=== PATIENT | female | born 1980 | race Caucasian/White ===

== ENCOUNTER 2018-08-30 08:46 | Inpatient (IN) | payer OTHER ==
[2018-08-30 08:52] VITALS: BMI 32.9
--- NOTE | 2018-08-30 09:23 | PDOC ---
History of Present Illness - General Chief Complaint: Revisit, Lab Variance Stated Complaint: SENT BY PCP Time Seen by Provider: 08/30/18 09:08 History Source: Patient Past History - Travel Traveled outside of the country in the last 30 days: No Close contact w/someone who was outside of country & ill: No - Past Medical History Allergies/Adverse Reactions: Allergies Allergy/AdvReac Type Severity Reaction Status Date / Time No Known Allergies Allergy Verified 08/30/18 08:48 COPD: No GI Disorders: Yes (ESRD) HTN: Yes - Immunization History Immunization Up to Date: Yes - Suicide/Smoking/Psychosocial Hx Smoking History: Never smoked Hx Alcohol Use: No Drug/Substance Use Hx: No Review of Systems - Review of Systems Able to Perform ROS?: Yes Comments:: 08/30/18 09:18 CONSTITUTIONAL: Absent: fever, chills, diaphoresis, generalized weakness, malaise, loss of appetite HEENT: Absent: rhinorrhea, nasal congestion, throat pain, throat swelling, difficulty swallowing, mouth swelling, ear pain, eye pain, visual Changes CARDIOVASCULAR: Absent: chest pain, loss of consciousness, palpitations, irregular heart rate, peripheral edema RESPIRATORY: Absent: cough, shortness of breath, dyspnea with exertion, orthopnea, wheezing, stridor, hemoptysis GASTROINTESTINAL: Absent: abdominal pain, abdominal distension, nausea, vomiting, diarrhea, constipation, melena, hematochezia GENITOURINARY: Absent: dysuria, frequency, urgency, hesitancy, hematuria, flank pain, genital pain MUSCULOSKELETAL: Absent: myalgia, arthralgia, joint swelling SKIN: Absent: rash, itching, pallor HEMATOLOGIC/IMMUNOLOGIC: Absent: easy bleeding, easy bruising, lymphadenopathy, frequent infections ENDOCRINE: Absent: unexplained weight gain, unexplained weight loss, heat intolerance, cold intolerance NEUROLOGIC: Absent: headache, focal weakness or paresthesias, dizziness, unsteady gait, seizure, mental status changes, bladder or bowel incontinence PSYCHIATRIC: Absent: anxiety, depression, suicidal or homicidal ideation, hallucinations. Is the patient limited Haitian proficient: No *Physical Exam - Vital Signs Last Vital Signs Temp Pulse Resp BP Pulse Ox 97.8 F 64 16 153/60 100 08/30/18 08:49 08/30/18 08:49 08/30/18 08:49 08/30/18 08:49 08/30/18 08:49 - Physical Exam Comments: 08/30/18 09:18 GENERAL: Well developed, well nourished. Awake and alert. No acute distress. HEENT: Normocephalic, atraumatic. PERRLA, EOMI. No conjunctival pallor. Sclera are non- icteric. Moist mucous membranes. Oropharynx is clear. NECK: Supple. Full ROM. No JVD. Carotid pulses 2+ and symmetric, without bruits. No thyromegaly. No lymphadenopathy. CARDIOVASCULAR: Regular rate and rhythm. No murmurs, rubs, or gallops. Distal pulses are 2+ and symmetric. PULMONARY: No evidence of respiratory distress. Lungs clear to auscultation bilaterally. No wheezing, rales or rhonchi. ABDOMINAL: Soft. Non-tender. Non-distended. No rebound or guarding. No organomegaly. Normoactive bowel sounds. MUSCULOSKELETAL Normal range of motion at all joints. No bony deformities or tenderness. No CVA tenderness. EXTREMITIES: No cyanosis. No clubbing. No edema. No calf tenderness. SKIN: Warm and dry. Normal capillary refill. No rashes. No jaundice. NEUROLOGICAL: Alert, awake, appropriate. Cranial nerves 2-12 intact. No deficits to light touch and temperature in face, upper extremities and lower extremities. No motor deficits in the in face, upper extremities and lower extremities. Normoreflexic in the upper and lower extremities. Normal speech. Toes are down- going bilaterally. Gait is normal without ataxia. PSYCHIATRIC: Cooperative. Good eye contact. Appropriate mood and affect. ED Treatment Course - LABORATORY CBC & Chemistry Diagram: 08/30/18 10:35 08/30/18 10:35 Medical Decision Making - Medical Decision Making 08/30/18 09:19 The patient is a 38-year-old female past medical history of hypertension, uremia /severe anemia, ESRD who presents to the emergency department today for permacath placement and possible AV fistula. She was sent over by Dr. Samantha Hart. He states that she is also to start dialysis [facility]. She states that she saw Dr. Samantha Hart on 08/25/18. Patient states that she currently has no symptoms and that she feels fine. Denies fevers, chills, difficulty breathing, shortness of breath, chest pain, palpitations, nausea, vomiting, diarrhea comfortably, urgency and hematuria. Patient does make urine. Last oral intake 5am, water. NPO since then. A/P: ESRD Lungs are clear bilaterally, cardiac exam S1-S2 present with no murmurs rubs or gallops. No CVA tenderness Patient has a prescription from Dr. Samantha Hart requesting a consult for Dr. Soni for permacath placement as well as AV fistula consults. Also states that she will need start dialysis [facility]. We'll order basic labs and EKG, urine and consult Dr. Soni Reevaluate 08/30/18 10:36 Dr. Soni paged Labs drawn, 20g IV placed in the R AC 08/30/18 11:[address] Soni, will see patient today. CR is 7.2 BUN 66. K 5.0 Will admit patient for permacath placement and dialysis. Dr. Bermudez consulted. Microblog sent to [facility] 08/30/18 12:[address] Leung. Accepted to Med/surg dialysis bed 08/30/18 12:[address] Soni, IV now in the L forearm as pt is L hand dominant. Will want to obtain access on the R arm instead. *DC/Admit/Observation/Transfer Diagnosis at time of Disposition: Uremia, ESRD (end stage renal disease) - Discharge Dispostion Disposition: HOME Condition at time of disposition: Stable Decision to Admit order: Yes - Referrals - Patient Instructions - Post Discharge Activity
--- NOTE | 2018-08-30 10:24 | PDOC ---
*Physical Exam - Vital Signs Last Vital Signs Temp Pulse Resp BP Pulse Ox 97.8 F 64 16 153/60 100 08/30/18 08:49 08/30/18 08:49 08/30/18 08:49 08/30/18 08:49 08/30/18 08:49 Heart Score/ECG Review #1 ECG reviewed & interpreted by me at: 10:00 General ECG Interpretation: Sinus Rhythm, Normal Rate (62), Normal Intervals ( qtc 440), No acute ischemic changes (TWI AVL) Compared to previous ECG there are: Previous ECG unavail Medical Decision Making - Medical Decision Making 08/30/18 10:22 Patient seen and evaluated with the nurse practitioner. I agree with the overall evaluation, assessment, and management with the following summary of visit: 38-year-old female with history of uremia and anemia sent for initiation of dialysis, will need urgent nephrology and vascular consult. EKG is sinus at 62 without changes concerning for hyperkalemia or ischemia Labs, chest x-ray Admission, consult for Dr. Soni per PCP *DC/Admit/Observation/Transfer Diagnosis at time of Disposition: Uremia - Referrals Referrals: Samantha Bermudez MD [Primary Care Provider] - - Patient Instructions - Post Discharge Activity
[2018-08-30 10:43] LABS: BASO % 1.2 % (0-2.0); EOS % 4.5 % (0-4.5); HEMATOCRIT 26.9 % (32.4-45.2); HEMOGLOBIN 9.4 GM/dL (10.7-15.3); LYMPH % 12.4 % (8-40); MCH 32.5 pg (25.7-33.7); MCHC 34.9 g/dl (32.0-36.0); MEAN CELL VOLUME 93.2 fl (80-96); MEAN PLT VOLUME 7.8 fl (7.5-11.1); MONO % 4.3 % (3.8-10.2); NEUT % 77.6 % (42.8-82.8); PLATELET COUNT 211 K/MM3 (134-434); RBC 2.89 M/mm3 (3.60-5.2); RDW 14.4 % (11.6-15.6); WHITE BLOOD COUNT 6.8 K/mm3 (4.0-10.0)
[2018-08-30 11:02] LABS: INR 0.94 (0.83-1.09); PROTHROMBIN TIME (PATIENT) 11.1 SEC (9.7-13.0)
[2018-08-30 11:05] LABS: MAGNESIUM 2.5 mg/dL (1.8-2.4); PHOSPHOROUS 4.2 mg/dL (2.5-4.9)
[2018-08-30 11:19] LABS: ALK PHOS 128 U/L (45-117); ANION GAP 7 MMOL/L (8-16); BILIRUBIN,TOTAL 0.4 mg/dL (0.2-1); BLOOD UREA NITROGEN 64 mg/dL (7-18); CALCIUM 8.7 mg/dL (8.5-10.1); CHLORIDE 111 mmol/L (98-107); CO2 22 mmol/L (21-32); CREATININE 7.2 mg/dL (0.55-1.3); GLUCOSE,RANDOM 91 mg/dL (74-106); SGOT/AST 14 U/L (15-37); SGPT/ALT 17 U/L (13-61); SODIUM 140 mmol/L (136-145); TOT PROT 7.6 g/dl (6.4-8.2)
--- NOTE | 2018-08-30 12:27 | HP ---
PCP: Jennifer Chow CHIEF COMPLAINT: Sent in for HD HISTORY OF PRESENT ILLNESS: This is a 38 year old woman who presents to the ED at the advice of her auger machine offbearer, Dr. Bermudez, for initiation of HD because of worsening CKD. She has no specific complaints. She has been urinating normally. She does experience fatigue and feels generally weak. PAST MEDICAL HISTORY Stage 5 CKD IgA nephropathy HTN PAST SURGICAL HISTORY Denies ALLERGIES No Known Allergies Allergy (Verified 08/30/18 08:48) MEDICATIONS BP med - unsure which Social History: Smoking: Denies Alcohol: Denies Drugs: Denies Recent Travel: Denies Family History Unremarkable REVIEW OF SYSTEMS CONSTITUTIONAL: Present: fatigue, generalized weakness. Absent: fever, chills , diaphoresis, loss of appetite, weight change HEENT: Absent: rhinorrhea, nasal congestion, throat pain, throat swelling, difficulty swallowing, mouth swelling, ear pain, eye pain, visual changes CARDIOVASCULAR: Absent: chest pain, syncope, palpitations, lightheadedness, peripheral edema RESPIRATORY: Absent: cough, shortness of breath, dyspnea with exertion, orthopnea, wheezing, stridor, hemoptysis GASTROINTESTINAL: Absent: abdominal pain, abdominal distension, nausea, vomiting , diarrhea, constipation, melena, hematochezia GENITOURINARY: Absent: dysuria, frequency, urgency, hesitancy, hematuria, flank pain, genital pain MUSCULOSKELETAL: Absent: myalgia, arthralgia, joint swelling, back pain, neck pain SKIN: Absent: rash, itching, pallor HEMATOLOGIC/IMMUNOLOGIC: Absent: easy bleeding, easy bruising, lymphadenopathy, frequent infections ENDOCRINE: Absent: unexplained weight gain, unexplained weight loss, heat intolerance, cold intolerance NEUROLOGIC: Absent: headache, focal weakness, paresthesias, dizziness, unsteady gait, seizure, mental status changes, bladder or bowel incontinence PSYCHIATRIC: Absent: anxiety, depression, suicidal or homicidal ideation, hallucinations. PHYSICAL EXAMINATION Vital Signs - 24 hr 08/30/18 08:49 Temperature 97.8 F Pulse Rate 64 Respiratory 16 Rate Blood Pressure 153/60 O2 Sat by Pulse 100 Oximetry (%) GENERAL: Awake, alert, and fully oriented, in no acute distress. HEAD: Normal with no signs of trauma. EYES: Pupils equal, round and reactive to light, extraocular movements intact, sclerae anicteric, conjunctivae clear. EARS, NOSE, THROAT: Ears normal, nares patent, oropharynx clear without exudates. Moist mucous membranes. NECK: Normal range of motion, supple without lymphadenopathy, JVD, or masses. LUNGS: Breath sounds equal, clear to auscultation bilaterally. No wheezes, and no crackles. No accessory muscle use. HEART: Regular rate and rhythm, normal S1 and S2 without murmur, rub or gallop. ABDOMEN: Obese, soft, nontender, not distended, normoactive bowel sounds, no guarding, no rebound, no masses. No hepatomegaly or splenomegaly. MUSCULOSKELETAL: Normal range of motion at all joints. No bony deformities or tenderness. No CVA tenderness. UPPER EXTREMITIES: 2+ pulses, warm, well-perfused. No cyanosis. No clubbing. No peripheral edema. LOWER EXTREMITIES: 2+ pulses, warm, well-perfused. No calf tenderness. No peripheral edema. NEUROLOGICAL: Cranial nerves II-XII intact. Normal speech. Gait not observed. PSYCHIATRIC: Cooperative. Good eye contact. Appropriate mood and affect. SKIN: Warm, dry, normal turgor, no rashes or lesions noted, normal capillary refill. Laboratory Results - last 24 hr 08/30/18 08/30/18 08/30/18 10:32 10:35 10:35 WBC 6.8 RBC 2.89 L Hgb 9.4 L Hct 26.9 L MCV 93.2 MCH 32.5 MCHC 34.9 RDW 14.4 Plt Count 211 MPV 7.8 Absolute Neuts (auto) 5.3 Neutrophils % 77.6 Lymphocytes % 12.4 Monocytes % 4.3 Eosinophils % 4.5 Basophils % 1.2 Nucleated RBC % 0 PT with INR INR Sodium 140 Potassium 5.0 Chloride 111 H Carbon Dioxide 22 Anion Gap 7 L BUN 64 H Creatinine 7.2 H Creat Clearance w eGFR 6.29 Random Glucose 91 Calcium 8.7 Phosphorus Magnesium Total Bilirubin 0.4 AST 14 L ALT 17 Alkaline Phosphatase 128 H Total Protein 7.6 Albumin 4.0 Blood Type O POSITIVE Antibody Screen Negative 08/30/18 08/30/18 08/30/18 10:35 10:35 10:35 WBC RBC Hgb Hct MCV MCH MCHC RDW Plt Count MPV Absolute Neuts (auto) Neutrophils % Lymphocytes % Monocytes % Eosinophils % Basophils % Nucleated RBC % PT with INR 11.10 INR 0.94 Sodium Potassium Chloride Carbon Dioxide Anion Gap BUN Creatinine Creat Clearance w eGFR Random Glucose Calcium Phosphorus 4.2 Magnesium 2.5 H Total Bilirubin AST ALT Alkaline Phosphatase Total Protein Albumin Blood Type O POSITIVE Antibody Screen Negative ASSESSMENT/PLAN: This is a 38 year old woman with a history of stage 5 CKD, IgA nephropathy, HTN who was sent to the ED by Dr. Bermudez because of worsening kidney function to start hemodialysis. 1. ESRD - Vascular surgery consulted for dialysis catheter insertion, AV fistula formation - Nephrology consulted for HD - Will need to arrange outpatient HD 2. IgA nephropathy 3. HTN - BP 153/60 - She is unsure which med she takes - Will reassess once HD started 4. Anemia secondary to CKD - No indication for transfusion at this time - Epogen with HD
[2018-08-30] MEDS ORDERED: ACETAMINOPHEN 325 MG TABLET (FP) PO PRN ×2 (12:28→16:25)
--- NOTE | 2018-08-30 13:45 | CONSULT ---
Addendum entered and electronically signed by Jon Dale PA 08/30/18 14:51: LUE Vein mapping Possible AVF creation 08/31/18 Original Note: <Jon Dale - Last Filed: 08/30/18 14:31> - Consultation REQUESTING PROVIDER: Arik Soni - Vascular Surgery CONSULT REQUEST: We have been asked to surgically evaluate this patient for ESRD , Uremic PCP: Anthony Leung MD HPI: Called to evaluate 38 yo female with PMHx as noted below. Patient is right hand dominant. She was last seen by Dr. Samantha Bermudez'han (Nephro) on 08/25/18 and deemed that she needs to begin HD [facility] secondary to her CKD which has progressed to ESRD. Patient currently is asymptomatic (no signs of fluid overload or SOB, making urine). Denies n/v/f/c, CP, palpitations, irregular rhythm, cough, SOB, PETIT or weight change PMHx: HTN, Uremia, Anemia, ESRD PSHx: Denies. Home Meds: Denies. Allergies: NKDA ROS: CONSTITUTIONAL: Absent: diaphoresis, generalized weakness, malaise, loss of appetite CARDIOVASCULAR: Absent: syncope,lightheadedness RESPIRATORY: Absent: wheezing, stridor, hemoptysis GASTROINTESTINAL:Absent: abdominal pain, abdominal distension, constipation, melena, hematochezia GENITOURINARY: Absent: requency, urgency, hesitancy MUSCULOSKELETAL: Absent: myalgia, arthralgia, joint swelling, back pain, neck pain SKIN: Absent: rash, itching, pallor HEMATOLOGIC/IMMUNOLOGIC: Absent: easy bleeding, easy bruising, lymphadenopathy NEUROLOGIC: Absent: headache, focal weakness, paresthesias, dizziness, unsteady gait, seizure, mental status changes PSYCHIATRIC: Absent: anxiety, depression, suicidal or homicidal ideation, hallucinations. PE: GENERAL: Awake, alert, and fully oriented, NAD HEAD: NC. AT. EYES: PERRL, sclera anicteric, conjunctiva clear. NECK: Normal ROM, supple without lymphadenopathy, JVD, or masses. LUNGS: CTA bilat HEART: RRR ABDOMEN: Soft, NT, ND MUSCULOSKELETAL: No CVAaT bilat UE: 2+ pulses, warm, well-perfused. No cyanosis. Cap refill <2 seconds. No peripheral edema. LE: 2+ pulses, warm, well-perfused. No calf tenderness. No peripheral edema. NEUROLOGICAL: Normal speech, gait not observed. PSYCH: Cooperative. Good eye contact. Appropriate mood and affect. SKIN: Warm, dry, normal turgor, no rashes or lesions noted Last Vital Signs Temp Pulse Resp BP Pulse Ox 97.8 F 64 16 153/60 100 08/30/18 08:49 08/30/18 08:49 08/30/18 08:49 08/30/18 08:49 08/30/18 08:49 CBC, BMP 08/30/18 10:35 08/30/18 10:35 INR, PTT INR 0.94 (0.83-1.09) 08/30/18 10:35 Blood Type Blood Type O POSITIVE 08/30/18 10:35 Problem List - Problems (1) ESRD (end stage renal disease) Assessment/Plan: 38 year old female with CKD which has progressed to ESRD now in need of HD as per Dr. Singh (Nephro). Make patient NPO IVF rate KVO Going to OR today for Permacath followed by HD tomorrow morning Save LUE - NO PHLEBOTOMY or IVs Above plan discussed with Dr. Soni and agrees. Code(s): N18.6 - END STAGE RENAL DISEASE Visit type - Case Type Case Type: ED Admission - Emergency Emergency Visit: Yes ED Registration Date: 08/30/18 Care time: The patient presented to the Emergency Department on the above date and was hospitalized for further evaluation of their emergent condition. - New patient This patient is new to me today: Yes Date on this admission: 08/30/18 <Arik Soni - Last Filed: 08/30/18 15:59> - Consultation REQUESTING PROVIDER: CONSULT REQUEST: We have been asked to surgically evaluate this patient for ( specify). PCP:Anthony Leung MD HISTORY OF PRESENT ILLNESS: PMHx: PSHx: Home Medications Medication Instructions Recorded Unobtainable 08/30/18 Allergies Allergy/AdvReac Type Severity Reaction Status Date / Time No Known Allergies Allergy Verified 08/30/18 08:48 REVIEW OF SYSTEMS: CONSTITUTIONAL: Absent: fever, chills, diaphoresis, generalized weakness, malaise, loss of appetite, weight change CARDIOVASCULAR: Absent: chest pain, syncope, palpitations, irregular heart rate, lightheadedness , peripheral edema RESPIRATORY: Absent: cough, shortness of breath, dyspnea with exertion, wheezing, stridor, hemoptysis GASTROINTESTINAL: Absent: abdominal pain, abdominal distension, nausea, vomiting, diarrhea, constipation, melena, hematochezia GENITOURINARY: Absent: dysuria, frequency, urgency, hesitancy, hematuria, flank pain, genital pain MUSCULOSKELETAL: Absent: myalgia, arthralgia, joint swelling, back pain, neck pain SKIN: Absent: rash, itching, pallor HEMATOLOGIC/IMMUNOLOGIC: Absent: easy bleeding, easy bruising, lymphadenopathy NEUROLOGIC: Absent: headache, focal weakness, paresthesias, dizziness, unsteady gait, seizure, mental status changes, bladder or bowel incontinence PSYCHIATRIC: Absent: anxiety, depression, suicidal or homicidal ideation, hallucinations. PHYSICAL EXAM: GENERAL: Awake, alert, and fully oriented, in no acute distress. HEAD: Normal with no signs of trauma. EYES: PERRL, sclera anicteric, conjunctiva clear. NECK: Normal ROM, supple without lymphadenopathy, JVD, or masses. LUNGS: Clear to auscultation bilat anteriorly. No wheezes, and no crackles. No accessory muscle use. HEART: Regular rate and rhythm. No murmurs ABDOMEN: Soft, nontender, not distended, normoactive bowel sounds, no guarding, no rebound, no masses. No organomegaly. MUSCULOSKELETAL: Normal ROM at all joints. No bony deformities or tenderness. No CVA tenderness. UPPER EXTREMITIES: 2+ pulses, warm, well-perfused. No cyanosis. Cap refill <2 seconds. No peripheral edema. LOWER EXTREMITIES: 2+ pulses, warm, well-perfused. No calf tenderness. No peripheral edema. NEUROLOGICAL: Normal speech, gait not observed. PSYCH: Cooperative. Good eye contact. Appropriate mood and affect. SKIN: Warm, dry, normal turgor, no rashes or lesions noted. Vital Signs Temperature 98.2 F 08/30/18 14:35 Pulse Rate 83 08/30/18 14:35 Respiratory Rate 18 08/30/18 14:35 Blood Pressure 140/69 08/30/18 14:35 O2 Sat by Pulse Oximetry (%) 100 08/30/18 14:35 Lab Results WBC 6.8 K/mm3 (4.0-10.0) 08/30/18 10:35 RBC 2.89 M/mm3 (3.60-5.2) L 08/30/18 10:35 Hgb 9.4 GM/dL (10.7-15.3) L 08/30/18 10:35 Hct 26.9 % (32.4-45.2) L 08/30/18 10:35 MCV 93.2 fl (80-96) 08/30/18 10:35 MCHC 34.9 g/dl (32.0-36.0) 08/30/18 10:35 RDW 14.4 % (11.6-15.6) 08/30/18 10:35 Plt Count 211 K/MM3 (134-434) 08/30/18 10:35 Sodium 140 mmol/L (136-145) 08/30/18 10:35 Potassium 5.0 mmol/L (3.5-5.1) 08/30/18 10:35 Chloride 111 mmol/L (98-107) H 08/30/18 10:35 Carbon Dioxide 22 mmol/L (21-32) 08/30/18 10:35 Anion Gap 7 MMOL/L (8-16) L 08/30/18 10:35 BUN 64 mg/dL (7-18) H 08/30/18 10:35 Creatinine 7.2 mg/dL (0.55-1.3) H 08/30/18 10:35 Random Glucose 91 mg/dL (74-106) 08/30/18 10:35 Calcium 8.7 mg/dL (8.5-10.1) 08/30/18 10:35 Blood Type O POSITIVE 08/30/18 10:35 Antibody Screen Negative 08/30/18 10:35 INR 0.94 (0.83-1.09) 08/30/18 10:35 History reviewed, patient examined. She states she is left handed. Right arm cephalic vein 3 mm above elbow, brachial pulse 2+. radial artery 1.5 mm at wrist. Permacath placement today to begin HD. AV fistula right arm tomorrow.
[2018-08-30 13:56] LABS: HCG,QUALITATIVE URINE Negative
[2018-08-30 13:57] LABS: EPI CELLS 6.2 /HPF (0-5/HPF); URINE APPEARANCE CLEAR; URINE BACTERIA 399.3 /hpf (NEGATIVE); URINE BILIRUBIN NEGATIVE (NEGATIVE); URINE CASTS 0 /lpf (0-8); URINE COLOR YELLOW; URINE GLUCOSE (UA) NEGATIVE (NEGATIVE); URINE KETONE NEGATIVE (NEGATIVE); URINE LEUK ESTERASE NEGATIVE (NEGATIVE); URINE NITRITE NEGATIVE (NEGATIVE); URINE PROTEIN 3+ (NEGATIVE); URINE RBC 2 /hpf (0-4); URINE UROBILINOGEN 0.2 mg/dL (0.2-1.0); URINE WBC 2 /hpf (0-5)
[2018-08-30] MEDS ORDERED: LIDOCAINE HCL 1%, 10 MG/ML (20ML VIAL) ONE (14:38)
[2018-08-30] MEDS ORDERED: SODIUM CHLORIDE 1,000 ML IV SCH ×2 (15:00→16:25)
[2018-08-30] MEDS ORDERED: PROMETHAZINE HCL 25 MG/1 ML VIAL IVPUSH PRN ×2 (15:00→16:25)
[2018-08-30] MEDS ORDERED: ONDANSETRON 4 MG/2 ML VIAL IVPUSH PRN ×2 (15:00→16:25)
[2018-08-30] MEDS ORDERED: MIDAZOLAM HCL 2 MG/2 ML SINGLE DOSE VIAL ONE (15:09)
--- NOTE | 2018-08-30 15:10 | CONSULT ---
Consult - text type - Consultation Consultation Note: Renal Consult for CKD stage 5/ESRD This is a 38 year old woman wit hx of 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 Samantha Bermudez for worsening renal function and initiation of dialysis. Pt reports fatigue and generalized weakness. Denies any metallic tastes in the mouth, nausea or vomiting. Making urine. Denies any dysuria, flank pain. No leg swelling. No CP or SOB. PMhx: as above Allergies: NKDA Family Hx: NC Social Hx: No T/A/D ROS: as per HPI, all other pertinent ros negative Vital Signs Temperature 98.2 F 08/30/18 14:35 Pulse Rate 83 08/30/18 14:35 Respiratory Rate 18 08/30/18 14:35 Blood Pressure 140/69 08/30/18 14:35 O2 Sat by Pulse Oximetry (%) 100 08/30/18 14:35 Intake & Output 08/27/18 08/28/18 08/29/18 08/30/18 23:59 23:59 23:59 23:59 Weight 81.647 kg NAD awake and alert neck supple, no JVD RRR, NO M/R/G CTA no rales or wheeze soft NT/ND, no guarding No LE edema, clubbing or cyanosis no bladder distension CBC, BMP 08/30/18 10:35 08/30/18 10:35 Laboratory Tests 08/30/18 08/30/18 10:35 10:35 Creat Clearance w eGFR 6.29 Phosphorus 4.2 Magnesium 2.5 H Albumin 4.0 Current Medications Acetaminophen (Tylenol -) 650 mg PO Q4H PRN PRN Reason: PAIN 1-3 Fentanyl (Sublimaze Injection -) 50 mcg IVPUSH [id number] PRN PRN Reason: PAIN-PACU ORDER X 4 DOSES ONLY Sodium Chloride (Normal Saline -) 1,000 mls @ 42 mls/hr IV ASDIR ZACKERY Ondansetron HCl (Zofran Injection) 4 mg IVPUSH Q6H PRN PRN Reason: NAUSEA AND/OR VOMITING Promethazine HCl (Phenergan Injection -) 12.5 mg IVPUSH Q6H PRN PRN Reason: NAUSEA-FOR RESCUE AFTER 15 MIN 38 year old woman wit hx of 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 Samantha Bermudez for worsening renal function and initiation of dialysis. #CKD stage 5 now ESRD requiring dialysis (eGFR 6) #IgA nephropathy #Hypertension #CKD related Anemia Risk and benefits of dialysis explained to the patient and pt is agreeble to start dialysis seen by vascular surgery and will have tunneled HD catheter placed today will plan for first dialysis tomorrow morning and 2nd tx on Thursday morning Check hepatitis profile Check iron studies, will give TRAVIS with HD BP goal < 140/90 can start ARB once started on dialysis Renal diet, 1.2 L fluid restriction Thank you Will follow Celso Terrazas DO
[2018-08-30] MEDS ORDERED: SODIUM CHLORIDE 0.9% P/F 10 ML VIAL IJ ONE (15:30)
[2018-08-30] MEDS ORDERED: ceFAZolin SODIUM 1 GM VIAL ONE (15:30)
[2018-08-30] MEDS ORDERED: LIDOCAINE HCL/PF 2% SDV 5ML VIAL ONE (15:31)
[2018-08-30] MEDS ORDERED: ceFAZolin SODIUM 1 GM VIAL IVPB ONE (15:31)
[2018-08-30] MEDS ORDERED: LIDOCAINE HCL 1%, 10 MG/ML (20ML VIAL) NR ONE ×2 (15:35)
--- NOTE | 2018-08-30 16:01 | OP ---
Operative Note - Note: Operative Date: 08/30/18 Pre-Operative Diagnosis: ESRD Operation: Placement Permacath Findings: Patent left IJV Implants: 23 cm Permacath Post-Operative Diagnosis: Same as Pre-op Surgeon: Arik Soni Anesthesiologist/PARAGLIDING INSTRUCTOR: Eduardo Dalton Anesthesia: Fractional
[2018-08-30] MEDS ORDERED: LABETALOL HCL 5 MG/1 ML (100MG/20 ML VIAL) IVPUSH ONE ×5 (16:06→17:18)
[2018-08-30] MEDS ORDERED: ACETAMINOPHEN WITH CODEINE 300MG/30MG TABLET PO PRN (16:25)
--- NOTE | 2018-08-30 16:39 | SPA.PREOP ---
- PRE-OP NOTE Dx: ESRD Planned Procedure: Plan for LUE fistula Surgeon: Dr. Soni Last Vital Signs Temp Pulse Resp BP Pulse Ox 98.2 F 83 18 140/69 100 08/30/18 14:35 08/30/18 14:35 08/30/18 14:35 08/30/18 14:35 08/30/18 14:35 Lab Results WBC 6.8 K/mm3 (4.0-10.0) 08/30/18 10:35 RBC 2.89 M/mm3 (3.60-5.2) L 08/30/18 10:35 Hgb 9.4 GM/dL (10.7-15.3) L 08/30/18 10:35 Hct 26.9 % (32.4-45.2) L 08/30/18 10:35 MCV 93.2 fl (80-96) 08/30/18 10:35 MCHC 34.9 g/dl (32.0-36.0) 08/30/18 10:35 RDW 14.4 % (11.6-15.6) 08/30/18 10:35 Plt Count 211 K/MM3 (134-434) 08/30/18 10:35 Sodium 140 mmol/L (136-145) 08/30/18 10:35 Potassium 5.0 mmol/L (3.5-5.1) 08/30/18 10:35 Chloride 111 mmol/L (98-107) H 08/30/18 10:35 Carbon Dioxide 22 mmol/L (21-32) 08/30/18 10:35 Anion Gap 7 MMOL/L (8-16) L 08/30/18 10:35 BUN 64 mg/dL (7-18) H 08/30/18 10:35 Creatinine 7.2 mg/dL (0.55-1.3) H 08/30/18 10:35 Random Glucose 91 mg/dL (74-106) 08/30/18 10:35 Calcium 8.7 mg/dL (8.5-10.1) 08/30/18 10:35 Blood Type O POSITIVE 08/30/18 10:35 Antibody Screen Negative 08/30/18 10:35 INR 0.94 (0.83-1.09) 08/30/18 10:35 Laboratory Tests 08/30/18 08/30/18 10:32 10:35 Antibody Screen Negative Negative - ASSESSMENT/PLAN 38 yo female with ESRD, s/p Left IJ permacath pre-op for LUE fistula 1. Make NPO after midnight except po meds 2. GI/DVT PPX 3. Medical optimization / clearance 4. Consent to be obtained by surgeon after risks, benefits and alternatives discussed with patient and or Health Care Proxy.
--- NOTE | 2018-08-30 23:10 | OP ---
DATE OF OPERATION: 08/30/2018 SURGEON: Arik Fleming MD PROCEDURE: Placement of PermCath under ultrasound guidance. PREOPERATIVE DIAGNOSIS: End-stage renal disease. POSTOPERATIVE DIAGNOSIS: End-stage renal disease. ANESTHESIA: Fractional. ANESTHESIOLOGIST: Carmen Dalton MD OPERATIVE FINDINGS: Left internal jugular vein was patent and compressible with normal flow on ultrasound. OPERATIVE PROCEDURE: Following routine patient identification, gentle intravenous sedation was established. The left neck and chest were prepped and draped with ChloraPrep. Timeout was performed. Then 1% lidocaine was infiltrated lateral to the left internal jugular vein, which was identified on duplex ultrasound. The micropuncture needle was advanced under ultrasound guidance into the vein from the lateral approach and a microwire was advanced proximally into the innominate vein. The needle was exchanged for a 5-[place] catheter and the wire was exchanged for a J-tipped wire to advance into the right atrium and then distally into the inferior vena cava. Additional lidocaine was infiltrated in the chest wall and a stab wound made. A 23-cm tip-to-cuff PermCath was advanced through the tunneler from [id number] and positioned the cuff in the subcutaneous tissues. The tract around the wire was then dilated under ultrasound guidance. The introducer was placed into the innominate vein. The wire and dilator were removed and the PermCath was advanced through the introducer with the tip positioned in the right atrium. The introducer was peeled away. Blood was aspirated from each lumen with a 20-mL syringe and the catheter was filled with heparin saline solution. It was sutured to the skin with 3-0 nylon and the neck wound was closed with a subcuticular suture of 3-0 Vicryl. Sterile dressings were applied. The patient was taken to the recovery room in stable condition. ARIK FLEMING M.D. [id number]
[2018-08-31] MEDS ORDERED: SODIUM CHLORIDE 250 ML IV PRN ×2 (06:39→12:50)
[2018-08-31] MEDS ORDERED: EPOETIN ALFA 2,000 UNIT/1 ML VIAL IVPUSH ONE (06:39)
[2018-08-31 07:38] LABS: HEMATOCRIT 28.7 % (32.4-45.2); HEMOGLOBIN 9.7 GM/dL (10.7-15.3); MCH 31.2 pg (25.7-33.7); MCHC 33.7 g/dl (32.0-36.0); MEAN CELL VOLUME 92.8 fl (80-96); MEAN PLT VOLUME 8.2 fl (7.5-11.1); PLATELET COUNT 216 K/MM3 (134-434); RBC 3.09 M/mm3 (3.60-5.2); RDW 14.3 % (11.6-15.6); WHITE BLOOD COUNT 8.1 K/mm3 (4.0-10.0)
[2018-08-31 07:45] LABS: ANION GAP 9 MMOL/L (8-16); BLOOD UREA NITROGEN 66 mg/dL (7-18); CALCIUM 8.6 mg/dL (8.5-10.1); CHLORIDE 109 mmol/L (98-107); CO2 21 mmol/L (21-32); GLUCOSE,RANDOM 91 mg/dL (74-106); MAGNESIUM 2.6 mg/dL (1.8-2.4); PHOSPHOROUS 5.3 mg/dL (2.5-4.9); POTASSIUM 4.4 mmol/L (3.5-5.1); SODIUM 139 mmol/L (136-145)
--- NOTE | 2018-08-31 08:08 | PN ---
Progress Note (short form) - Note Progress Note: POD1 s/p LIJ permacath placement under MAC. No anesthetic issues/complications
[2018-08-31 08:28] LABS: CREATININE 7.4 mg/dL (0.55-1.3)
[2018-08-31] MEDS ORDERED: hydrALAZINE HCL 10 MG TABLET PO ONE (09:40)
--- NOTE | 2018-08-31 09:49 | PN ---
Physical Exam: SUBJECTIVE: Patient seen and examined at the bedside. OBJECTIVE: Patient is a 38 year old woman with a history of stage 5 CKD, IgA nephropathy, HTN who was sent to the ED by nephrology because of worsening kidney function to start hemodialysis. She is also here for an AV fistula placement. restart home medications for elevated bp: on lopressor and amlodopine Vital Signs Period Temp Pulse Resp BP Sys/Cueva Pulse Ox Last 24 Hr 97.7 F-98.4 F 66-83 16-18 117-174/69-100 97-100 GENERAL: The patient is awake, alert, and fully oriented, in no acute distress. HEAD: Normal with no signs of trauma. EYES: PERRL, extraocular movements intact, sclera anicteric, conjunctiva clear. No ptosis. ENT: Ears normal, nares patent, oropharynx clear without exudates, moist mucous membranes. NECK: Trachea midline, full range of motion, supple. LUNGS: Breath sounds equal, clear to auscultation bilaterally, no wheezes HEART: Regular rate and rhythm ABDOMEN: Soft, nontender, nondistended, normoactive bowel sounds, no guarding, no rebound, no hepatosplenomegaly, no masses. EXTREMITIES: no edema. NEUROLOGICAL: Normal speech, gait not observed. PSYCH: Normal mood, normal affect. Laboratory Results - last 24 hr 08/30/18 08/30/18 08/30/18 10:32 10:35 10:35 WBC 6.8 RBC 2.89 L Hgb 9.4 L Hct 26.9 L MCV 93.2 MCH 32.5 MCHC 34.9 RDW 14.4 Plt Count 211 MPV 7.8 Absolute Neuts (auto) 5.3 Neutrophils % 77.6 Lymphocytes % 12.4 Monocytes % 4.3 Eosinophils % 4.5 Basophils % 1.2 Nucleated RBC % 0 PT with INR INR Sodium 140 Potassium 5.0 Chloride 111 H Carbon Dioxide 22 Anion Gap 7 L BUN 64 H Creatinine 7.2 H Creat Clearance w eGFR 6.29 Random Glucose 91 Calcium 8.7 Phosphorus Magnesium Total Bilirubin 0.4 AST 14 L ALT 17 Alkaline Phosphatase 128 H Total Protein 7.6 Albumin 4.0 Urine Color Urine Appearance Urine pH Ur Specific [place] Urine Protein Urine Glucose (UA) Urine Ketones Urine Blood Urine Nitrite Urine Bilirubin Urine Urobilinogen Ur Leukocyte Esterase Urine WBC (Auto) Urine RBC (Auto) Urine Casts (Auto) U Epithel Cells (Auto) Urine Bacteria (Auto) Urine HCG, Qual Blood Type O POSITIVE Antibody Screen Negative 08/30/18 08/30/18 08/30/18 10:35 10:35 10:35 WBC RBC Hgb Hct MCV MCH MCHC RDW Plt Count MPV Absolute Neuts (auto) Neutrophils % Lymphocytes % Monocytes % Eosinophils % Basophils % Nucleated RBC % PT with INR 11.10 INR 0.94 Sodium Potassium Chloride Carbon Dioxide Anion Gap BUN Creatinine Creat Clearance w eGFR Random Glucose Calcium Phosphorus 4.2 Magnesium 2.5 H Total Bilirubin AST ALT Alkaline Phosphatase Total Protein Albumin Urine Color Urine Appearance Urine pH Ur Specific [place] Urine Protein Urine Glucose (UA) Urine Ketones Urine Blood Urine Nitrite Urine Bilirubin Urine Urobilinogen Ur Leukocyte Esterase Urine WBC (Auto) Urine RBC (Auto) Urine Casts (Auto) U Epithel Cells (Auto) Urine Bacteria (Auto) Urine HCG, Qual Blood Type O POSITIVE Antibody Screen Negative 08/30/18 08/31/18 08/31/18 13:18 06:30 06:30 WBC 8.1 RBC 3.09 L Hgb 9.7 L Hct 28.7 L MCV 92.8 MCH 31.2 MCHC 33.7 RDW 14.3 Plt Count 216 MPV 8.2 Absolute Neuts (auto) Neutrophils % Lymphocytes % Monocytes % Eosinophils % Basophils % Nucleated RBC % PT with INR INR Sodium 139 Potassium 4.4 Chloride 109 H Carbon Dioxide 21 Anion Gap 9 BUN 66 H Creatinine 7.4 H* Creat Clearance w eGFR 6.10 Random Glucose 91 Calcium 8.6 Phosphorus 5.3 H Magnesium 2.6 H Total Bilirubin AST ALT Alkaline Phosphatase Total Protein Albumin Urine Color Yellow Urine Appearance Clear Urine pH 6.0 Ur Specific [place] 1.013 Urine Protein 3+ H Urine Glucose (UA) Negative Urine Ketones Negative Urine Blood Trace Urine Nitrite Negative Urine Bilirubin Negative Urine Urobilinogen 0.2 Ur Leukocyte Esterase Negative Urine WBC (Auto) 2 Urine RBC (Auto) 2 Urine Casts (Auto) 0 U Epithel Cells (Auto) 6.2 Urine Bacteria (Auto) 399.3 Urine HCG, Qual Negative Blood Type Antibody Screen Active Medications Generic Name Dose Route Start Last Admin Trade Name Freq PRN Reason Stop Dose Admin Acetaminophen 650 mg 08/30/18 16:25 Tylenol - PO Q4H PRN PAIN 1-3 Acetaminophen/Codeine Phosphate 1 tab 08/30/18 16:25 08/30/18 21:00 Tylenol # 3 - PO 1 tab Q4H PRN Administration PAIN LEVEL 4 - 6 Epoetin [place] 10,000 unit 08/31/18 06:39 Epogen - IVPUSH 08/31/18 06:40 ONCE ONE Sodium Chloride 250 mls @ 3,000 mls/hr 08/31/18 06:39 Normal Saline - IV 09/01/18 06:39 PRN PRN Hypotension during Dialysis Labetalol HCl 300 mg 08/31/18 10:00 Normodyne - PO 08/31/18 10:01 ONCE ONE Ondansetron HCl 4 mg 08/30/18 16:25 Zofran Injection IVPUSH Q6H PRN NAUSEA AND/OR VOMITING Promethazine HCl 12.5 mg 08/30/18 16:25 Phenergan Injection - IVPUSH Q6H PRN NAUSEA-FOR RESCUE AFTER 15 MIN ASSESSMENT/PLAN: Patient is a 38 year old woman who presents to the ED at the advice of her nephrologis for initiation of HD because of worsening CKD. She has a right permacath for dialysis today. AVF placement today. She will need outpatient HD facility prior to discharged. Renal CKD, ESRD Patient had a permacath placed yesterday, AVF left arm placed today First dialysis today Renal following Left arm precautions monitor labs in a.m. Card: Hypertension. uncontrolled Started on home labelalol 300mg bid, amlodopine 5mg Monitor bp fen tolerating po renal diet prophy heparin full code Visit type - Emergency Visit Emergency Visit: Yes ED Registration Date: 08/30/18 Care time: The patient presented to the Emergency Department on the above date and was hospitalized for further evaluation of their emergent condition. - New Patient This patient is new to me today: Yes Date on this admission: 08/31/18 - Critical Care Critical Care patient: No - Discharge Referral Referred to [facility] Med P.C.: No
[2018-08-31] MEDS ORDERED: LABETALOL HCL 100 MG TABLET (FP) PO ONE ×2 (10:00→13:15)
[2018-08-31] MEDS ORDERED: PATIENT'S OWN MEDICATION (NON-FORMULARY) (Ferric Citrate [Auryxia] 210 MG) PO SCH (10:00)
[2018-08-31] MEDS ORDERED: POVIDONE-IODINE OINTMENT 10% - 28.4 GM TUBE ONE (10:02)
[2018-08-31] MEDS ORDERED: HEPARIN NA (PORCINE) 5,000 UNITS/ML 1ML VIAL ONE (10:02)
[2018-08-31] MEDS ORDERED: PAPAVERINE HCL 30 MG/1 ML 10 ML VIAL NR ONE (10:02)
[2018-08-31] MEDS ORDERED: LIDOCAINE HCL 1%, 10 MG/ML (20ML VIAL) ONE (10:02)
[2018-08-31] MEDS ORDERED: MIDAZOLAM HCL 2 MG/2 ML SINGLE DOSE VIAL ONE (10:41)
[2018-08-31] MEDS ORDERED: LABETALOL HCL 5 MG/1 ML (100MG/20 ML VIAL) ONE (10:50)
[2018-08-31] MEDS ORDERED: PROPOFOL 20 ML ONE ×2 (10:50)
[2018-08-31] MEDS ORDERED: LIDOCAINE HCL/PF 2% SDV 5ML VIAL ONE (10:53)
[2018-08-31] MEDS ORDERED: GLYCOPYRROLATE 0.2 MG/1 ML VIAL ONE (10:56)
[2018-08-31] MEDS ORDERED: LABETALOL HCL 200 MG TABLET (FP) PO SCH (11:00)
[2018-08-31] MEDS ORDERED: amLODIPine BESYLATE 5 MG TABLET (FP) PO ONE ×3 (11:00→16:45)
[2018-08-31] MEDS ORDERED: LIDOCAINE HCL 1%, 10 MG/ML (50 mL VIAL) IJ ONE ×2 (11:01)
[2018-08-31] MEDS ORDERED: ONDANSETRON 4 MG/2 ML VIAL IVPUSH PRN ×3 (11:13→12:50)
[2018-08-31] MEDS ORDERED: SODIUM CHLORIDE 1,000 ML IV SCH (11:15)
[2018-08-31] MEDS ORDERED: POVIDONE-IODINE OINTMENT 10% - 28.4 GM TUBE TP ONE (11:27)
--- NOTE | 2018-08-31 12:37 | OP ---
Operative Note - Note: Operative Date: 08/31/18 Pre-Operative Diagnosis: ESRD Operation: Creation AV fistula left arm Findings: Left cephalic vein occluded proximal to elbow. Basilic vein patent. Post-Operative Diagnosis: Same as Pre-op Surgeon: Arik Soni Anesthesiologist/START UP SPECIALIST: Lora De La Rosa Anesthesia: Fractional
[2018-08-31] MEDS ORDERED: PROMETHAZINE HCL 25 MG/1 ML VIAL IVPUSH PRN (12:50)
[2018-08-31] MEDS ORDERED: ACETAMINOPHEN 325 MG TABLET (FP) PO PRN (12:50)
--- NOTE | 2018-08-31 13:39 | OP ---
DATE OF OPERATION: 08/31/2018 SURGEON: Arik Soni MD PROCEDURE: Creation of arteriovenous fistula, left arm. PREOPERATIVE DIAGNOSIS: Renal failure. POSTOPERATIVE DIAGNOSIS: Renal failure. ANESTHESIA: Fractional. ANESTHESIOLOGIST: Lora De La Rosa MD OPERATIVE FINDINGS: The antecubital vein was patent, but the cephalic vein proximal to the elbow was occluded. The basilic vein was patent from the antecubital fossa proximally. The brachial artery was patent with normal diameter and flow. OPERATIVE PROCEDURE: Following routine patient identification with side and site verification, intravenous sedation was established. The left arm was prepped with ChloraPrep. Next, 1% lidocaine was infiltrated in the antecubital fossa, and a longitudinal incision was made. The antecubital branches of the basilic and cephalic veins were identified and were carefully mobilized from the surrounding tissues. Small side branches were ligated with silk ties and divided. The cephalic vein was then ligated at its juncture with the basilic vein and incised. It was distended with heparin and papaverine solution. Considerable resistance was met with the injection of saline. Attempts to pass a number 5 feeding tube proximally met resistance just proximal to the antecubital fossa. A number 3 Sotero catheter was passed and withdrawn with no improvement in the situation. A modified Santos valvulotome was also used, but we could not restore patency to this occluded portion of the vein. Decision was made to proceed with the fistula to the basilic vein. The cephalic vein was ligated and divided. The wound was deepened through the muscle fascia over the brachial pulse. The artery was mobilized from the surrounding tissues. Crossing veins were ligated with silk ties and divided. The artery was mobilized and secured with vessel loops. Side branches were ligated with silk ties and divided. The artery was occluded with vessel loops and opened on exposed surface with a 6-mm arteriotomy. The vein was then freed and spatulated and anastomosed to the side of the artery with running suture of 6-0 Prolene. Prior to completion of the suture line, the artery was allowed to back bleed and flush, and the vein was again flushed with heparin solution. Suture line was completed, and all vessels were released. There was good flow through the anastomosis. Bleeding from the suture line was controlled with Surgicel. The wound was then closed with interrupted suture of 3-0 Vicryl and skin nancy. Sterile dressings were applied, and the patient was taken to the recovery room in stable condition. Colin JANSEN/[id number]
--- NOTE | 2018-08-31 14:04 | PN ---
Progress Note (short form) - Note Progress Note: Renal follow up for CKD5/ESRD Pt seen and examined in the PACU s/p AVF placement had tunneled catheter placed yesterday feels groggy but no sob, cp, abd pain required IV labetalol x 2 duing and after OR for BP control Vital Signs Temperature 98.4 F 08/31/18 12:27 Pulse Rate 97 H 08/31/18 13:45 Respiratory Rate 16 08/31/18 13:45 Blood Pressure 139/81 08/31/18 13:45 O2 Sat by Pulse Oximetry (%) 100 08/31/18 13:45 Intake & Output 08/28/18 08/29/18 08/30/18 08/31/18 23:59 23:59 23:59 23:59 Intake Total 320 200 Output Total 5 5 Balance 315 195 Weight 81.647 kg NAD awake and alert neck supple, no JVD RRR, NO M/R/G CTA no rales or wheeze soft NT/ND, no guarding No LE edema CBC, BMP 08/31/18 06:30 08/31/18 06:30 Current Medications Acetaminophen (Tylenol -) 650 mg PO Q4H PRN PRN Reason: PAIN 1-3 Acetaminophen/Codeine Phosphate (Tylenol # 3 -) 1 tab PO Q4H PRN PRN Reason: PAIN LEVEL 4 - 6 Epoetin [place] (Procrit -) 10,000 unit IVPUSH ONCE ONE Stop: 08/31/18 14:16 Fentanyl (Sublimaze Injection -) 25 mcg IVPUSH [id number] PRN PRN Reason: PAIN-PACU ORDER X 4 DOSES ONLY Last Admin: 08/31/18 13:00 Dose: 25 mcg Fentanyl (Sublimaze Injection -) 50 mcg IVPUSH [id number] PRN PRN Reason: PAIN-PACU ORDER X 4 DOSES ONLY Stop: 08/31/18 18:00 Sodium Chloride (Normal Saline -) 250 mls @ 3,000 mls/hr IV PRN PRN PRN Reason: Hypotension during Dialysis Stop: 09/01/18 06:39 Sodium Chloride (Normal Saline -) 1,000 mls @ 42 mls/hr IV ASDIR ZACKERY Labetalol HCl (Normodyne -) 300 mg PO BID ZACKERY Non-Formulary Medication (Ferric Citrate [Auryxia]) 210 mg PO DAILY ZACKERY Ondansetron HCl (Zofran Injection) 4 mg IVPUSH Q6H PRN PRN Reason: NAUSEA AND/OR VOMITING Stop: 09/01/18 12:49 Ondansetron HCl (Zofran Injection) 4 mg IVPUSH Q6H PRN PRN Reason: NAUSEA AND/OR VOMITING Stop: 09/01/18 12:49 Promethazine HCl (Phenergan Injection -) 12.5 mg IVPUSH Q6H PRN PRN Reason: NAUSEA-FOR RESCUE AFTER 15 MIN Stop: 09/01/18 12:49 38 year old woman wit hx of 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 Samantha Bermudez for worsening renal function and initiation of dialysis. #CKD stage 5 now ESRD requiring dialysis (eGFR 6) #IgA nephropathy #Hypertension #CKD related Anemia for 1st dialysis today s/p tunneled catheter and AVF placement Check hepatitis profile Check iron studies, will give TRAVIS with HD BP elevated, will start ARB now that pt is on dialysis Celso Terrazas DO
[2018-08-31] MEDS ORDERED: EPOETIN ALFA 10,000 UNIT/1 ML VIAL IVPUSH ONE (14:15)
--- NOTE | 2018-08-31 14:33 | EKG ---
Test Reason : Blood Pressure : / mmHG Vent. Rate : 062 BPM Atrial Rate : 062 BPM P-R Int : 172 ms QRS Dur : 096 ms QT Int : 434 ms P-R-T Axes : 063 064 086 degrees QTc Int : 440 ms NORMAL SINUS RHYTHM NORMAL ECG NO PREVIOUS ECGS AVAILABLE Confirmed by MD GEORGIA, JOE ([id number]) on 08/31/2018 2:33:27 PM Referred By: Confirmed By:JOE HO MD
[2018-08-31] MEDS: ACETAMINOPHEN WITH CODEINE 300MG/30MG TABLET PO PRN (18:51)
[2018-08-31] MEDS: SODIUM CHLORIDE 1,000 ML IV SCH (18:53)
[2018-08-31] MEDS: LABETALOL HCL 200 MG TABLET (FP) PO SCH (21:37)
[2018-09-01] MEDS: ACETAMINOPHEN WITH CODEINE 300MG/30MG TABLET PO PRN (05:03)
[2018-09-01 07:17] LABS: BASO % 0.5 % (0-2.0); EOS % 1.1 % (0-4.5); HEMATOCRIT 24.6 % (32.4-45.2); HEMOGLOBIN 8.6 GM/dL (10.7-15.3); LYMPH % 14.1 % (8-40); MCH 32.1 pg (25.7-33.7); MCHC 34.9 g/dl (32.0-36.0); MEAN CELL VOLUME 92.1 fl (80-96); MEAN PLT VOLUME 8.3 fl (7.5-11.1); MONO % 7.1 % (3.8-10.2); NEUT % 77.2 % (42.8-82.8); PLATELET COUNT 179 K/MM3 (134-434); RBC 2.67 M/mm3 (3.60-5.2); RDW 14.1 % (11.6-15.6); WHITE BLOOD COUNT 8.2 K/mm3 (4.0-10.0)
[2018-09-01 07:33] LABS: ALBUMIN 3.4 g/dl (3.4-5.0); ALK PHOS 100 U/L (45-117); ANION GAP 8 MMOL/L (8-16); BILIRUBIN,TOTAL 0.3 mg/dL (0.2-1); BLOOD UREA NITROGEN 37 mg/dL (7-18); CALCIUM 7.9 mg/dL (8.5-10.1); CHLORIDE 107 mmol/L (98-107); CO2 24 mmol/L (21-32); CREATININE 5.5 mg/dL (0.55-1.3); GLUCOSE,RANDOM 84 mg/dL (74-106); SGOT/AST 15 U/L (15-37); SGPT/ALT 14 U/L (13-61); SODIUM 139 mmol/L (136-145); TOT PROT 6.5 g/dl (6.4-8.2)
--- NOTE | 2018-09-01 08:59 | PN ---
Progress Note (short form) - Note Progress Note: POD 1, s/p LUE AVF creation, POD 2, s/p L PC placement Pt seen and examined. Reports she is having some pain in her Left arm after surgery. Has been oob without issue. Tolerating PO. Reports HD yesterday via L PC without issue. Denies cp/so, n/v/d. Vital Signs Temp 98.5 F 09/01/18 02:00 Pulse 83 09/01/18 02:00 Resp 18 09/01/18 02:00 BP 146/84 09/01/18 02:00 Pulse Ox 99 08/31/18 14:00 Intake & Output 08/31/18 08/31/18 09/01/18 11:59 23:59 11:59 Intake Total 200 750 420 Output Total 5 Balance 195 750 420 Intake: IV 200 100 420 Normal Saline - 1,000 ml 420 @ 42 mls/hr IV ASDIR ZACKERY Rx#:[id number] Oral 0 650 Output: Estimated Blood Loss 5 Other: Voiding Method Toilet Toilet # Unmeasured Voids Void 2 1 Bowel Movement No No CBC, BMP 09/01/18 06:00 09/01/18 06:00 Gen: awake, alert, nad Resp: Unlabored on RA Extremities: LUE with mild edema at surgical site, dressing c/d/i. AVF with palpable thrill. Hand warm, able to wiggle fingers without issue. Cap refill brisk. A/P: 38 y/o F w/ PMHx htn, IgA nephropathy, stage 5 CKD now progressed to ESRD, HD initiated on 08/30, POD 1, s/p LUE AVF creation, POD 2, s/p L PC placement. LUE with mild edema at surgical site, AVF with good thrill -Continue LUE elevation above the level of the heart -Keep dressing c/d/i -Continue HD per Renal -Pt should f/u with Dr Soin in 2 weeks, call for appointment -Remainder of plan per medical team Discussed with attending Dr Soni
[2018-09-01] MEDS: HEPARIN NA (PORCINE) 5,000 UNITS/ML 1ML VIAL IVPUSH SCH ×3 (09:30→11:30)
[2018-09-01] MEDS ORDERED: PATIENT'S OWN MEDICATION (NON-FORMULARY) (Ferric Citrate [Auryxia] 210 MG) PO SCH (10:00)
[2018-09-01] MEDS ORDERED: SODIUM CHLORIDE 250 ML IV PRN (10:50)
[2018-09-01] MEDS ORDERED: HEPARIN NA (PORCINE) 5,000 UNITS/ML 1ML VIAL IVPUSH ONE (11:00)
--- NOTE | 2018-09-01 13:05 | PN ---
Progress Note (short form) - Note Progress Note: Renal follow up for CKD5/ESRD Pt seen and examined at the bedside awake and alert s/p 2nd session of Hd this am no sob, cp, abd pain, N/V/D making urine Vital Signs Temperature 99.3 F 09/01/18 10:00 Pulse Rate 66 09/01/18 10:05 Respiratory Rate 18 09/01/18 10:05 Blood Pressure 125/82 09/01/18 10:05 O2 Sat by Pulse Oximetry (%) 98 09/01/18 09:00 Intake & Output 08/29/18 08/30/18 08/31/18 09/01/18 23:59 23:59 23:59 23:59 Intake Total 320 950 420 Output Total 5 5 Balance 315 945 420 Weight 81.647 kg NAD awake and alert neck supple, no JVD RRR, NO M/R/G CTA no rales or wheeze soft NT/ND, no guarding No LE edema CBC, BMP 08/31/18 06:30 08/31/18 06:30 Current Medications Acetaminophen (Tylenol -) 650 mg PO Q4H PRN PRN Reason: PAIN 1-3 Acetaminophen/Codeine Phosphate (Tylenol # 3 -) 1 tab PO Q4H PRN PRN Reason: PAIN LEVEL 4 - 6 Epoetin [place] (Procrit -) 10,000 unit IVPUSH ONCE ONE Stop: 08/31/18 14:16 Fentanyl (Sublimaze Injection -) 25 mcg IVPUSH [id number] PRN PRN Reason: PAIN-PACU ORDER X 4 DOSES ONLY Last Admin: 08/31/18 13:00 Dose: 25 mcg Fentanyl (Sublimaze Injection -) 50 mcg IVPUSH [id number] PRN PRN Reason: PAIN-PACU ORDER X 4 DOSES ONLY Stop: 08/31/18 18:00 Sodium Chloride (Normal Saline -) 250 mls @ 3,000 mls/hr IV PRN PRN PRN Reason: Hypotension during Dialysis Stop: 09/01/18 06:39 Sodium Chloride (Normal Saline -) 1,000 mls @ 42 mls/hr IV ASDIR ZACKERY Labetalol HCl (Normodyne -) 300 mg PO BID ZACKERY Non-Formulary Medication (Ferric Citrate [Auryxia]) 210 mg PO DAILY ZACKERY Ondansetron HCl (Zofran Injection) 4 mg IVPUSH Q6H PRN PRN Reason: NAUSEA AND/OR VOMITING Stop: 09/01/18 12:49 Ondansetron HCl (Zofran Injection) 4 mg IVPUSH Q6H PRN PRN Reason: NAUSEA AND/OR VOMITING Stop: 09/01/18 12:49 Promethazine HCl (Phenergan Injection -) 12.5 mg IVPUSH Q6H PRN PRN Reason: NAUSEA-FOR RESCUE AFTER 15 MIN Stop: 09/01/18 12:49 38 year old woman wit hx of 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 Samantha Bermudez for worsening renal function and initiation of dialysis. #CKD stage 5 now ESRD requiring dialysis (eGFR 6) #IgA nephropathy #Hypertension #CKD related Anemia tolerated 2 sessions of HD as an inpatient outpatient Hd placement pending renal diet continue present BP meds can start ARB as an outpatient will continue TRAVIS with HD Celso Terrazas DO
[2018-09-01] MEDS: LABETALOL HCL 200 MG TABLET (FP) PO SCH ×2 (13:32→22:18)
[2018-09-01] MEDS: amLODIPine BESYLATE 5 MG TABLET (FP) PO SCH (13:35)
[2018-09-01] MEDS: HEPARIN NA (PORCINE) 5,000 UNITS/ML 1ML VIAL SQ SCH ×2 (13:36→22:16)
[2018-09-01] MEDS: SODIUM CHLORIDE 1,000 ML IV SCH (13:38)
--- NOTE | 2018-09-01 15:56 | PN ---
Progress Note (short form) - Note Progress Note: Anesthesia post op note, POD#1, S/P Creation AV fistula left arm Under GA. Pat seen and examined, no apparent post anesthesia complications. VSS. Continued care as per primary team.
--- NOTE | 2018-09-01 17:13 | PN ---
Physical Exam: SUBJECTIVE: Patient seen and examined 24HR EVENTS - s/p LUE AV fistula creation. Pt has no complaints today. -awaiting HD center placement, in order to be discharged OBJECTIVE: Vital Signs Period Temp Pulse Resp BP Sys/Cueva Pulse Ox Last 24 Hr 97.4 F-99.3 F 66-84 18-18 119-162/57-101 98 GENERAL: The patient is awake, alert, and fully oriented, in no acute distress. Seen in dialysis suite. HEAD: Normal with no signs of trauma. EYES: PERRL, extraocular movements intact, sclera anicteric, conjunctiva clear. No ptosis. ENT: nares patent, oropharynx clear without exudates, moist mucous membranes. NECK: Trachea midline, full range of motion, supple. LUNGS: Breath sounds equal, clear to auscultation bilaterally, no wheezes, no crackles, no accessory muscle use. HEART: Regular rate and rhythm, S1, S2 without murmur, rub or gallop. ABDOMEN: Soft, nontender, nondistended, normoactive bowel sounds, no guarding, no rebound tenderness EXTREMITIES: 2+ pulses, warm, well-perfused, NEUROLOGICAL: no tremors Normal speech, gait not observed. PSYCH: Normal mood, normal affect. SKIN: Warm, dry, normal turgor, no rashes or lesions noted, LUE AVF, Left subcl TDC Laboratory Results - last 24 hr 09/01/18 09/01/18 06:00 06:00 WBC 8.2 RBC 2.67 L Hgb 8.6 L Hct 24.6 L MCV 92.1 MCH 32.1 MCHC 34.9 RDW 14.1 Plt Count 179 MPV 8.3 Absolute Neuts (auto) 6.3 Neutrophils % 77.2 Lymphocytes % 14.1 Monocytes % 7.1 Eosinophils % 1.1 Basophils % 0.5 Nucleated RBC % 0 Sodium 139 Potassium 4.0 Chloride 107 Carbon Dioxide 24 Anion Gap 8 BUN 37 H Creatinine 5.5 H Creat Clearance w eGFR 8.59 Random Glucose 84 Calcium 7.9 L Ferritin 52.8 Total Bilirubin 0.3 AST 15 ALT 14 Alkaline Phosphatase 100 Total Protein 6.5 Albumin 3.4 Active Medications Generic Name Dose Route Start Last Admin Trade Name Freq PRN Reason Stop Dose Admin Acetaminophen 650 mg 08/31/18 12:50 Tylenol - PO Q4H PRN PAIN 1-3 Acetaminophen/Codeine Phosphate 1 tab 08/31/18 12:50 09/01/18 05:03 Tylenol # 3 - PO 1 tab Q4H PRN Administration PAIN LEVEL 4 - 6 Amlodipine Besylate 5 mg 09/01/18 10:00 09/01/18 13:35 Norvasc - PO 5 mg DAILY ZACKERY Administration Fentanyl 25 mcg 08/31/18 12:50 08/31/18 13:00 Sublimaze Injection - IVPUSH 25 mcg [id number] PRN Administration PAIN-PACU ORDER X 4 DOSES ONLY Heparin Sodium (Porcine) 5,000 unit 09/01/18 10:00 09/01/18 13:36 Heparin - SQ Not Given BID ZACKERY Sodium Chloride 1,000 mls @ 42 mls/hr 08/31/18 12:50 09/01/18 13:38 Normal Saline - IV Not Given ASDIR ZACKERY Sodium Chloride 250 mls @ 3,000 mls/hr 09/01/18 10:50 Normal Saline - IV 09/02/18 10:49 PRN PRN Hypotension during Dialysis Labetalol HCl 300 mg 08/31/18 22:00 09/01/18 13:32 Normodyne - PO 300 mg BID ZACKERY Administration ASSESSMENT/PLAN: 38 year old woman with a history of stage 5 CKD, IgA nephropathy, and HTN who was initially referred to ED by nephrology for worsening renal function in need of immediate HD and AV fistula placement. She is now s/p LUE AVF and left subcl TDC. Renal: ESRD now on HD Nephro following, recs appreciated Left arm precautions 2/2 AVF daily labs awaiting HD center placement for d/c home Card: Hypertension. uncontrolled Started on home labelalol 300mg bid, amlodopine 5mg Trend BP FEN tolerating po renal diet prophy heparin SC TID Tylenol # 3 PRN severe pain Code status: full code Problem List - Problems (1) HTN, goal below 130/80 Code(s): I10 - ESSENTIAL (PRIMARY) HYPERTENSION (2) Prophylactic measure Code(s): Z29.9 - ENCOUNTER FOR PROPHYLACTIC MEASURES, UNSPECIFIED (3) ESRD (end stage renal disease) Code(s): N18.6 - END STAGE RENAL DISEASE Visit type - Emergency Visit Emergency Visit: Yes ED Registration Date: 08/30/18 Care time: The patient presented to the Emergency Department on the above date and was hospitalized for further evaluation of their emergent condition. - New Patient This patient is new to me today: Yes Date on this admission: 09/01/18 - Critical Care Critical Care patient: No - Discharge Referral Referred to [facility] Med P.C.: No
[2018-09-02 04:11] LABS: SERUM IRON SATURATION 21 % (15-55); TOTAL IRON BINDING CAPACITY 305 ug/dL (250-450); UIBC 242 ug/dL (131-425)
[2018-09-02 07:28] LABS: HEMATOCRIT 25.3 % (32.4-45.2); HEMOGLOBIN 8.7 GM/dL (10.7-15.3); MCH 31.5 pg (25.7-33.7); MCHC 34.4 g/dl (32.0-36.0); MEAN CELL VOLUME 91.5 fl (80-96); MEAN PLT VOLUME 7.9 fl (7.5-11.1); PLATELET COUNT 178 K/MM3 (134-434); RBC 2.76 M/mm3 (3.60-5.2); RDW 14.2 % (11.6-15.6); WHITE BLOOD COUNT 6.7 K/mm3 (4.0-10.0)
[2018-09-02 07:51] LABS: ALBUMIN 3.2 g/dl (3.4-5.0); ALK PHOS 94 U/L (45-117); ANION GAP 7 MMOL/L (8-16); BILIRUBIN,TOTAL 0.4 mg/dL (0.2-1); BLOOD UREA NITROGEN 30 mg/dL (7-18); CALCIUM 8.1 mg/dL (8.5-10.1); CHLORIDE 104 mmol/L (98-107); CO2 27 mmol/L (21-32); CREATININE 5.1 mg/dL (0.55-1.3); GLUCOSE,RANDOM 76 mg/dL (74-106); MAGNESIUM 1.8 mg/dL (1.8-2.4); PHOSPHOROUS 4.4 mg/dL (2.5-4.9); POTASSIUM 3.7 mmol/L (3.5-5.1); SGOT/AST 16 U/L (15-37); SGPT/ALT 10 U/L (13-61); SODIUM 138 mmol/L (136-145); TOT PROT 6.3 g/dl (6.4-8.2)
[2018-09-02] MEDS: ACETAMINOPHEN WITH CODEINE 300MG/30MG TABLET PO PRN (08:18)
[2018-09-02] MEDS: amLODIPine BESYLATE 5 MG TABLET (FP) PO SCH (10:21)
[2018-09-02] MEDS: LABETALOL HCL 200 MG TABLET (FP) PO SCH ×2 (10:22→21:43)
[2018-09-02] MEDS: HEPARIN NA (PORCINE) 5,000 UNITS/ML 1ML VIAL SQ SCH ×2 (10:22→21:44)
[2018-09-02 15:13] LABS: HBSAG SCREEN Negative (Negative); HEP A AB, IGM Negative (Negative); HEP B CORE AB, TOT Negative (Negative)
--- NOTE | 2018-09-02 16:35 | PN ---
Progress Note (short form) - Note Progress Note: Renal follow up for CKD5/ESRD Pt seen and examined at the bedside awake and alert feels well, offers no acute complaints no cp, sob, fever, chills Vital Signs Temperature 98.3 F 09/02/18 13:47 Pulse Rate 83 09/02/18 13:47 Respiratory Rate 17 09/02/18 13:47 Blood Pressure 125/71 09/02/18 13:47 O2 Sat by Pulse Oximetry (%) 98 09/01/18 20:36 Intake & Output 08/30/18 08/31/18 09/01/18 09/02/18 23:59 23:59 23:59 23:59 Intake Total 379 150 3307 500 Output Total 5 5 Balance 150 311 7947 500 Weight 81.647 kg 81.647 kg NAD awake and alert neck supple, no JVD RRR, NO M/R/G CTA no rales or wheeze soft NT/ND, no guarding No LE edema CBC, BMP 09/02/18 06:35 09/02/18 06:35 Current Medications Acetaminophen (Tylenol -) 650 mg PO Q4H PRN PRN Reason: PAIN 1-3 Last Admin: 09/01/18 22:31 Dose: 650 mg Acetaminophen/Codeine Phosphate (Tylenol # 3 -) 1 tab PO Q4H PRN PRN Reason: PAIN LEVEL 4 - 6 Last Admin: 09/02/18 08:18 Dose: 1 tab Amlodipine Besylate (Norvasc -) 5 mg PO DAILY [facility] Last Admin: 09/02/18 10:21 Dose: 5 mg Fentanyl (Sublimaze Injection -) 25 mcg IVPUSH [id number] PRN PRN Reason: PAIN-PACU ORDER X 4 DOSES ONLY Last Admin: 08/31/18 13:00 Dose: 25 mcg Heparin Sodium (Porcine) (Heparin -) 5,000 unit SQ BID [facility] Last Admin: 09/02/18 10:22 Dose: 5,000 unit Sodium Chloride (Normal Saline -) 1,000 mls @ 42 mls/hr IV ASDIR [facility] Last Admin: 09/01/18 13:38 Dose: Not Given Labetalol HCl (Normodyne -) 300 mg PO BID [facility] Last Admin: 09/02/18 10:22 Dose: 300 mg 38 year old woman wit hx of 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 Samantha Bermudez for worsening renal function and initiation of dialysis. 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
--- NOTE | 2018-09-02 17:07 | PN ---
Physical Exam: SUBJECTIVE: Patient seen and examined at the bedside. OBJECTIVE: Vital Signs Period Temp Pulse Resp BP Sys/Cueva Pulse Ox Last 24 Hr 97.5 F-98.3 F 69-83 17-20 116-151/58-84 98 GENERAL: The patient is awake, alert, and fully oriented, in no acute distress. HEAD: Normal with no signs of trauma. EYES: PERRL, extraocular movements intact, sclera anicteric, conjunctiva clear. No ptosis. ENT: Ears normal, nares patent, oropharynx clear without exudates, moist mucous membranes. NECK: Trachea midline, full range of motion, supple. LUNGS: Breath sounds equal, clear to auscultation bilaterally, no wheezes HEART: Regular rate and rhythm ABDOMEN: Soft, nontender, nondistended, normoactive bowel sounds, no guarding, no rebound, no hepatosplenomegaly, no masses. EXTREMITIES: no edema. NEUROLOGICAL: Normal speech, gait not observed. PSYCH: Normal mood, normal affect. Laboratory Results - last 24 hr 08/31/18 08/31/18 09/01/18 17:05 17:05 06:00 WBC RBC Hgb Hct MCV MCH MCHC RDW Plt Count MPV Sodium Potassium Chloride Carbon Dioxide Anion Gap BUN Creatinine Creat Clearance w eGFR Random Glucose Calcium Phosphorus Magnesium Iron 63 TIBC 305 Iron Saturation 21 Total Bilirubin AST ALT Alkaline Phosphatase Total Protein Albumin Hep A IgM Ab Confirm Negative Hepatitis A Ab Total Positive H Hep Bs Antigen Negative Hep Bs Antibody Non reactive Hep B Core Total Ab Negative Hep C Ab Diagnostic 0.1 09/02/18 09/02/18 06:35 06:35 WBC 6.7 RBC 2.76 L Hgb 8.7 L Hct 25.3 L MCV 91.5 MCH 31.5 MCHC 34.4 RDW 14.2 Plt Count 178 MPV 7.9 Sodium 138 Potassium 3.7 Chloride 104 Carbon Dioxide 27 Anion Gap 7 L BUN 30 H Creatinine 5.1 H Creat Clearance w eGFR 9.37 Random Glucose 76 Calcium 8.1 L Phosphorus 4.4 Magnesium 1.8 Iron TIBC Iron Saturation Total Bilirubin 0.4 AST 16 ALT 10 L Alkaline Phosphatase 94 Total Protein 6.3 L Albumin 3.2 L Hep A IgM Ab Confirm Hepatitis A Ab Total Hep Bs Antigen Hep Bs Antibody Hep B Core Total Ab Hep C Ab Diagnostic Active Medications Generic Name Dose Route Start Last Admin Trade Name Freq PRN Reason Stop Dose Admin Acetaminophen 650 mg 08/31/18 12:50 09/01/18 22:31 Tylenol - PO 650 mg Q4H PRN Administration PAIN 1-3 Acetaminophen/Codeine Phosphate 1 tab 08/31/18 12:50 09/02/18 08:18 Tylenol # 3 - PO 1 tab Q4H PRN Administration PAIN LEVEL 4 - 6 Amlodipine Besylate 5 mg 09/01/18 10:00 09/02/18 10:21 Norvasc - PO 5 mg DAILY ZACKERY Administration Epoetin [place] 20,000 unit 09/03/18 10:00 Procrit - IVPUSH 09/03/18 10:01 ONCE ONE Fentanyl 25 mcg 08/31/18 12:50 08/31/18 13:00 Sublimaze Injection - IVPUSH 25 mcg [id number] PRN Administration PAIN-PACU ORDER X 4 DOSES ONLY Heparin Sodium (Porcine) 5,000 unit 09/01/18 10:00 09/02/18 10:22 Heparin - SQ 5,000 unit BID ZACKERY Administration Sodium Chloride 1,000 mls @ 42 mls/hr 08/31/18 12:50 09/01/18 13:38 Normal Saline - IV Not Given ASDIR ZACKERY Sodium Chloride 250 mls @ 3,000 mls/hr 09/03/18 08:00 Normal Saline - IV 09/03/18 08:01 PRN PRN Hypotension during Dialysis Labetalol HCl 300 mg 08/31/18 22:00 09/02/18 10:22 Normodyne - PO 300 mg BID ZACKERY Administration ASSESSMENT/PLAN: Patient is a 38 year old woman who presents to the ED at the advice of her women's ministry director for initiation of HD because of worsening kidney function. Patient is currently receving dialysis via right permacath. She has a new left AVF placed on 08/31/18. She will need outpatient HD facility prior to discharged. Renal CKD, ESRD Patient had a permacath placed 08/30, AVF left arm placed 08/31. Dialysis per renal. Left arm precautions discussed with patient. monitor labs in a.m. Discharge home once outpatient HD facility has been set up (awaiting hepatitis profile). Card: Hypertension. better controlled. on home labelalol 300mg bid, amlodopine 5mg fen tolerating po renal diet, with nepro bid. prophy heparin full code Visit type - Emergency Visit Emergency Visit: Yes ED Registration Date: 08/30/18 Care time: The patient presented to the Emergency Department on the above date and was hospitalized for further evaluation of their emergent condition. - New Patient This patient is new to me today: No - Critical Care Critical Care patient: No - Discharge Referral Referred to [facility] Med P.C.: No
[2018-09-02] MEDS: SODIUM CHLORIDE 1,000 ML IV SCH (19:48)
[2018-09-03 08:53] LABS: BASO % 0.6 % (0-2.0); EOS % 8.1 % (0-4.5); HEMATOCRIT 26.1 % (32.4-45.2); HEMOGLOBIN 8.7 GM/dL (10.7-15.3); LYMPH % 11.9 % (8-40); MCH 31.5 pg (25.7-33.7); MCHC 33.4 g/dl (32.0-36.0); MEAN CELL VOLUME 94.5 fl (80-96); MEAN PLT VOLUME 8.5 fl (7.5-11.1); MONO % 3.8 % (3.8-10.2); NEUT % 75.6 % (42.8-82.8); PLATELET COUNT 189 K/MM3 (134-434); RBC 2.76 M/mm3 (3.60-5.2); RDW 14.1 % (11.6-15.6); WHITE BLOOD COUNT 8.9 K/mm3 (4.0-10.0)
[2018-09-03 09:17] LABS: ANION GAP 8 MMOL/L (8-16); BLOOD UREA NITROGEN 42 mg/dL (7-18); CALCIUM 8.3 mg/dL (8.5-10.1); CHLORIDE 105 mmol/L (98-107); CO2 25 mmol/L (21-32); CREATININE 6.3 mg/dL (0.55-1.3); GLUCOSE,RANDOM 127 mg/dL (74-106); MAGNESIUM 1.9 mg/dL (1.8-2.4); POTASSIUM 3.8 mmol/L (3.5-5.1); SODIUM 137 mmol/L (136-145)
[2018-09-03 09:40] LABS: ALBUMIN 3.4 g/dl (3.4-5.0); ALK PHOS 98 U/L (45-117); BILIRUBIN,TOTAL 0.4 mg/dL (0.2-1); SGOT/AST 23 U/L (15-37); SGPT/ALT 14 U/L (13-61); TOT PROT 6.7 g/dl (6.4-8.2)
[2018-09-03] MEDS ORDERED: CALCIUM (OYSTER SHELL) 500 MG TABLET (FP) PO SCH (10:00)
[2018-09-03] MEDS ORDERED: SODIUM CHLORIDE 250 ML IV PRN (10:42)
[2018-09-03] MEDS ORDERED: EPOETIN ALFA 20,000 UNIT/1 ML VIAL IVPUSH ONE (10:45)
[2018-09-03] MEDS: LABETALOL HCL 200 MG TABLET (FP) PO SCH (11:31)
[2018-09-03] MEDS: amLODIPine BESYLATE 5 MG TABLET (FP) PO SCH (11:32)
[2018-09-03] MEDS: HEPARIN NA (PORCINE) 5,000 UNITS/ML 1ML VIAL SQ SCH (11:34)
--- NOTE | 2018-09-03 12:24 | DS ---
Physical Exam: SUBJECTIVE: Patient seen and examined at the bedside. sitting up, eating lunch. OBJECTIVE: discharge home, patient has a set appointment for HD center on a thursday, , thursday schedule via shiley catheter until her left arm AVF is able to be used. Vital Signs Period Temp Pulse Resp BP Sys/Cueva Pulse Ox Last 24 Hr 97.9 F-98.8 F 60-87 16-18 107-161/56-99 99-100 PHYSICAL EXAM GENERAL: The patient is awake, alert, and fully oriented, in no acute distress. HEAD: Normal with no signs of trauma. EYES: PERRL, extraocular movements intact, sclera anicteric, conjunctiva clear. No ptosis. ENT: Ears normal, nares patent, oropharynx clear without exudates, moist mucous membranes. NECK: Trachea midline, full range of motion, supple. LUNGS: Breath sounds equal, clear to auscultation bilaterally, no wheezes HEART: Regular rate and rhythm ABDOMEN: Soft, nontender, nondistended, normoactive bowel sounds, no guarding, no rebound, no hepatosplenomegaly, no masses. EXTREMITIES: new left arm AV fistula. mild edema on mid elbow, no pain, s/p AV fistula placement NEUROLOGICAL: Normal speech, gait not observed. PSYCH: Normal mood, normal affect. LABS Laboratory Results - last 24 hr 08/31/18 09/03/18 09/03/18 17:05 06:00 08:00 WBC 8.9 RBC 2.76 L Hgb 8.7 L Hct 26.1 L MCV 94.5 MCH 31.5 MCHC 33.4 RDW 14.1 Plt Count 189 MPV 8.5 Absolute Neuts (auto) 6.7 Neutrophils % 75.6 Lymphocytes % 11.9 Monocytes % 3.8 Eosinophils % 8.1 H D Basophils % 0.6 Nucleated RBC % 0 Sodium 137 Potassium 3.8 Chloride 105 Carbon Dioxide 25 Anion Gap 8 BUN 42 H Creatinine 6.3 H Creat Clearance w eGFR 7.34 Random Glucose 127 H Calcium 8.3 L Magnesium 1.9 Total Bilirubin 0.4 AST 23 ALT 14 Alkaline Phosphatase 98 Total Protein 6.7 Albumin 3.4 Hep A IgM Ab Confirm Negative Hepatitis A Ab Total Positive H Hep Bs Antigen Negative Hep Bs Antibody Non reactive Hep B Core Total Ab Negative HOSPITAL COURSE: Patient is a 38 year old woman who presents to the ED 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 Patient is currently receiving dialysis via right permacath. She has a new left AVF placed on 08/31/18. She now has an outpatient HD facility and will be discharged home. Her next dialysis will be on Thursday at [facility]. Hospital course by problem list: Renal CKD, ESRD Patient had a permacath placed 08/30, AVF left arm placed 08/31. Left arm precautions discussed with patient (patient acknowledged instructions to protect her left arm from BP, venipuncture. no heavy lifting with her left arm) Discharge home today as she has been set up with an outpatient HD facility @ [facility] on a Thursday, , Thursday schedule. Card: Hypertension. better controlled. on home labelalol 300mg bid, amlodopine 5mg DISCHARGE PLAN: Discharge home with outpatient HD @ [facility]. Date of Admission:08/30/18 Date of Discharge: 09/03/18 Minutes to complete discharge: 60 Discharge Summary Reason For Visit: UREMIA, ESRD Current Active Problems ESRD (end stage renal disease) (Acute) HTN, goal below 130/80 (Acute) Prophylactic measure (Acute) Uremia (Acute) Condition: Improved - Instructions Diet, Activity, Other Instructions: Mrs Sanam Pederson: You will be discharged home today. Your new dialysis center is [facility] and you will start on a Thursday, , Thursday schedule. Your first appointment is on ThursdaySeptember 07 at 2:30 pm. Please continue taking your blood pressure medications as ordered. Maintain your left arm protected at all times. Do not lift anything heavy on the left arm and do not allow blood pressures or needle sticks on left arm. Please call me with any questions that you may have. Waleska Vicente NP [facility] [phone] Disposition: HOME - Home Medications Comprehensive Discharge Medication List: Ambulatory Orders Amlodipine Besylate 5 mg PO ONCE 08/31/18 Ferric Citrate [Auryxia] 210 mg PO DAILY 08/31/18 Labetalol HCl 300 mg PO BID 08/31/18 Amlodipine Besylate [Norvasc -] 5 mg PO DAILY tablet 09/03/18 Calcium (Oyster Shell) [Os-Ángel 500MG -] 500 mg PO DAILY #30 tablet 09/03/18 Calcium (Oyster Shell) [Os-Ángel 500MG -] 500 mg PO DAILY #60 tablet 09/03/18 This patient is new to me today: No Emergency Visit: Yes ED Registration Date: 08/30/18 Care time: The patient presented to the Emergency Department on the above date and was hospitalized for further evaluation of their emergent condition. Critical Care patient: No - Discharge Referral Referred to [facility] Med P.C.: No
[2018-09-03] MEDS: SODIUM CHLORIDE 1,000 ML IV SCH (13:03)
[2018-09-03 13:04] VITALS: BP 150/72; PULSE 77; TEMP 98.4
--- NOTE | 2018-09-03 14:49 | PN ---
Progress Note (short form) - Note Progress Note: Renal follow up for CKD5/ESRD Pt seen and examined at the bedside no acute complaints s/p HD this am via HD catheter no sob, cp, abd pain, N/V/D Vital Signs Temperature 98.4 F 09/03/18 13:03 Pulse Rate 77 09/03/18 13:03 Respiratory Rate 18 09/03/18 13:03 Blood Pressure 150/72 09/03/18 13:03 O2 Sat by Pulse Oximetry (%) 100 09/03/18 09:00 Intake & Output 08/31/18 09/01/18 09/02/18 09/03/18 23:59 23:59 23:59 23:59 Intake Total 950 1220 1999 Output Total 5 Balance 945 1220 1999 Weight 81.647 kg NAD awake and alert neck supple, no JVD RRR, NO M/R/G CTA no rales or wheeze soft NT/ND, no guarding No LE edema CBC, BMP 09/03/18 08:00 09/03/18 06:00 38 year old woman wit hx of 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 Samantha Bermudez for worsening renal function and initiation of dialysis. #CKD stage 5 now ESRD requiring dialysis (eGFR 6) #IgA nephropathy #Hypertension #CKD related Anemia s/p HD this am stable for discharge with outpatient dialysis renal diet and 1.2l fluid restriction Celso Terrazas DO
== END 2018-09-03 14:11 | disposition home or self-care (01) | DRG 444 ==
LOC: JER 08:46 → JERBED 12:03 → J5S 17:56
PROVIDERS: ADMIT Internal Medicine; ATTEND Nurse Practitioner Family
PROC: 02H633Z Insertion of Infusion Device into Right Atrium, Percutaneous Approach (ICD-10-PCS; 2018-08-30)
PROC: B244ZZZ Ultrasonography of Right Heart (ICD-10-PCS; 2018-08-30)
PROC: 5A1D70Z Performance of Urinary Filtration, Intermittent, Less than 6 Hours Per Day (ICD-10-PCS; 2018-08-31)
PROC: 03180ZD Bypass Left Brachial Artery to Upper Arm Vein, Open Approach (ICD-10-PCS; principal; 2018-08-31 10:00)
DX: I12.0 Hypertensive chronic kidney disease with stage 5 chronic kidney disease or end stage renal disease (principal); N18.6 End stage renal disease; D63.1 Anemia in chronic kidney disease
CPT/HCPCS: 36415; 71045-TC-FY; 71046-TC-FY; 76000-TC-FY; 80048; 80053; 81003; 82728; 83540; 83550; 83735; 84100; 84703; 85025; 85027; 85610; 86704; 86706; 86708; 86803; 86850; 86900; 86901; 87340; 93005; 93010; 94760; 99282-25; J0885; J1644; J7030